=== PATIENT | male | born 1995 | race Two or more races ===

== ENCOUNTER 2023-04-28 14:15 | Emergency (ER) | payer OTHER ==
[~2023-04-28] VITALS: Ht 193 cm; Wt 82.0 kg
[2023-04-28 14:22] VITALS: TEMP 98.2
[2023-04-28 14:54] VITALS: BP 112/75; PULSE 95; RESP 10
== END 2023-04-28 15:19 | disposition left against medical advice (07) ==
LOC: EMS 14:17
DX: R41.82 Altered mental status, unspecified (principal); F12.90 Cannabis use, unspecified, uncomplicated; F11.90 Opioid use, unspecified, uncomplicated
CPT/HCPCS: 99283; Z7502

== ENCOUNTER 2023-06-30 21:27 | Emergency (ER) | payer OTHER ==
[~2023-06-30] VITALS: Ht 193 cm; Wt 81.8 kg
[2023-06-30 21:29] VITALS: BP 138/88; PULSE 112; RESP 17; TEMP 98
[2023-06-30] MEDS ORDERED: SODIUM CHLORIDE 0.9% 1,000 ML IV ONE (23:00)
== END 2023-07-01 00:41 | disposition home or self-care (01) ==
LOC: EMS 21:46
DX: T40.411A Poisoning by fentanyl or fentanyl analogs, accidental (unintentional), initial encounter (principal); F12.90 Cannabis use, unspecified, uncomplicated; Y92.89 Other specified places as the place of occurrence of the external cause
CPT/HCPCS: 99283; 96360; J7030